=== PATIENT | female | born 1945 | race Caucasian/White ===

== ENCOUNTER → 2023-12-08 16:00 | Outpatient (REF) | payer MEDICARE, SELFPAY | LOC: HWRCS 16:00 | PROVIDERS: ATTENDING PHYSICIAN Internal Medicine; FAMILY PHYSICIAN Internal Medicine | DX: I25.118 Atherosclerotic heart disease of native coronary artery with other forms of angina pectoris (principal); I20.1 Angina pectoris with documented spasm; I48.0 Paroxysmal atrial fibrillation; R06.09 Other forms of dyspnea | CPT/HCPCS: 93306 ==

== ENCOUNTER 2024-08-05 17:54 | Emergency (ER) | payer MEDICARE, SELFPAY ==
[2024-08-05 17:54] VITALS: BMI 25.2
[2024-08-05 17:55] VITALS: BP 157/88
--- NOTE | 2024-08-05 22:41 | ED.GENMED ---
History of Present Illness
General
Chief Complaint: Musculo-Skeletal Complaint
Source: patient
Exam Limitations: none
Time Seen by Provider: 08/05/24 21:23
Nursing documentation reviewed up to this point in time: agreed with
History of Present Illness
History of Present Illness:
78-year-old female past medical history of CAD hyperlipidemia presenting to the emergency department today after she tripped landing directly on her right pinky finger she noticed a deformity he claims that she placed this back into place and came
in for further assessment. Denies any additional injuries no head trauma no loss of consciousness. No neck pain. No numbness or weakness. No breaks in the skin.
Past History
Past History
ED Past Medical History: Asthma, CAD, COPD, GERD, Hypercholesterolemia, Hypothyroidism and Other
ED Past Surgical History: Cardiac, Gynecological and Tonsilectomy
Social History
Tobacco: Former smoker
Alcohol: Occasional
Personal:
Living: with family
Employment: Retired
Family History
Family History: Unable to obtain
Review of Systems
Review of Systems
Allergies reviewed?: Yes
All Other Systems: ROS reviewed and negative except as documented in HPI and ROS
Phy Exam
Physical Exam
Physical Exam:
GENERAL: Alert , in no apparent distress
EYE: pupils equal and reactive
NECK: Supple, no significant adenopathy.
ENT: o/p clr, mmm.
CARDIAC: Regular rate and rhythm .
LUNGS: Clear breath sounds bilaterally, no acute respiratory distress, no wheezes/rales/rhonchi
ABDOMEN: Soft, without focal tenderness, no r/g, no cvat
NEUROLOGICAL: Alert and oriented, no focal neuro deficits
SKIN: Warm and dry, skin intact.
MUSCULOSKELETAL: Swelling and tenderness palpation throughout the right pinky finger no tenderness about the hand over the Manger of the fingers normal radial and ulnar pulses, well perfused.
PSYCH: Normal and appropriate interaction.
Course
Orders/Labs/Results
Orders:
Orders
08/05/24 18:00
CR Hand - Right Min 3 Views Urgent
Comment:
Reason For Exam: injury, swelling
Vital Signs
Initial and Last Documented VS:
Initial Vital Signs
Temp Pulse Resp BP Pulse Ox
97.9 F 82 16 157/88 97
08/05/24 17:55 08/05/24 17:55 08/05/24 17:55 08/05/24 17:55 08/05/24 17:55
Last Documented Vital Signs
Temp Pulse Resp BP Pulse Ox
97.9 F 82 16 157/88 97
08/05/24 17:55 08/05/24 17:55 08/05/24 17:55 08/05/24 17:55 08/05/24 17:55
Procedures
Splinting/Sling Placement
Right Fifth Finger:
Procedure completed by: myself
Pre-splint extermity exam: neurovascular intact
Type of splint: aluminium finger
Splint material: aluminum-foam
Splint checked by provider?: Yes
Normal distal neurovascular exam?: Yes
MDM/Problems Addressed
MDM/Problems Addressed:
78-year-old female presenting with concerns of injury to her right pinky finger after tripping while walking her dog. X-ray showing fracture to the proximal phalanx extra-articular. This was splinted neuro vastly intact. Otherwise will follow-up
with orthopedics for further assessment. Return precautions given.
*Critical Care Note
Total Time (30-74mins, 75-104mins- exclusive of procedures): Not Applicable
ED Attending Note
-
Portions of this chart may have been created with voice recognition software.� Occasional wrong word or��sound alike� substitutions may have occurred due to the inherent limitations of voice recognition software.
Discharge Plan
Departure
Patient Disposition: Home (Routine Discharge)
Date of Disposition: 08/05/24
Time of Disposition: 22:41
Patient with high blood pressure during this ER visit?: No
Condition: Good
Covid-19: Not Applicable
Discharge Problem:
Finger fracture
Instructions: Finger Fracture ED
Prescriptions:
No Action
multivitamin [Daily Multiple] 1 EACH tablet
1 ea PO DAILY
cetirizine 10 MG tablet
10 mg PO DAILY
isosorbide mononitrate 30 MG tablet extended release 24 hr
90 mg PO HS
nifedipine 30 MG tablet extended release
30 mg PO DAILY
aspirin 81 MG tablet,delayed release (DR/EC)
81 mg PO DAILY
levothyroxine 100 MCG tablet
100 mcg PO DAILY
isosorbide mononitrate 60 MG tablet extended release 24 hr
60 mg PO .AM
esomeprazole magnesium [Nexium] 40 MG capsule,delayed release(DR/EC)
40 mg PO DAILY
nitroglycerin 0.4 MG tablet, sublingual
0.4 mg sublingual PRN
montelukast 10 MG tablet
10 mg PO QPM
[id number] [id number] [Calcium Citrate Plus (Vit B6)] 1 EACH tablet
1 ea PO DAILY
rosuvastatin 10 MG tablet
10 mg PO QPM
levalbuterol HCl 0.63 MG/3 ML solution for nebulization
0.63 mg inhalation .Q4-6HPRN PRN (Reason: as directed)
moxifloxacin [Avelox] 400 MG tablet
400 mg PO DAILYPRN PRN (Reason: as directed)
fluticasone propion-salmeterol [Advair Diskus] 1 DISK blister with device
1 puff inhalation PRN PRN (Reason: as directed)
furosemide 20 MG tablet
20 mg PO DAILY
zolpidem 10 MG tablet
10 mg PO HSPRN PRN (Reason: as directed)
tiotropium bromide [Spiriva Respimat] 1 PUFF mist
1 puff inhalation DAILYPRN PRN (Reason: as directed)
tamsulosin 0.4 MG capsule
0.4 mg PO DAILY Qty: 5 0RF
ondansetron HCl 4 MG tablet
4 mg PO Q8HPRN PRN (Reason: Nausea/Vomiting) Qty: 10 0RF
oxycodone-acetaminophen 5 MG/325 MG tablet
1 tab PO Q4HPRN PRN (Reason: Pain) Qty: 10 0RF
tamsulosin 0.4 MG capsule
0.4 mg PO DAILY Qty: 5 0RF
hydrocodone-acetaminophen 1 TABLET tablet
1 tab PO Q4HPRN PRN (Reason: breakthrough pain) Qty: 10 0RF
diclofenac sodium 75 MG tablet,delayed release (DR/EC)
75 mg PO BID Qty: 10 0RF
Referrals:
Clovis Betancur MD [Active] - Follow up in 5-7 days
Sherrill Barnett DO [Family Provider] -
Activity Restrictions/Additional Instructions:
You came to the emergency department today with concerns of a finger fracture. This was splinted. Please leave the splint in place until orthopedic follow-up within 1 week. Return to the emergency department for any worsening, new or concerning
symptoms.
Interventions
Interventions:
*Risk Screen - Suicide Last Done: 08/05/24 17:55
*General Assessment Last Done: 08/05/24 17:55
*Neglect/Abuse Screening Last Done: 08/05/24 17:55
*ED COVID-19 Vaccine History Last Done: 08/05/24 17:55
ED-Musculoskeletal Assessment Last Done: 08/05/24 21:39
Discharge Date and Time
Print Language: UKRAINIAN
[2024-08-05 22:55] VITALS: BP 178/103
== END 2024-08-05 22:57 | disposition home or self-care (01) ==
LOC: EMR 17:54
PROVIDERS: EMERGENCY PHYSICIAN Emergency Medicine; FAMILY PHYSICIAN Internal Medicine
DX: S62.617A Displaced fracture of proximal phalanx of left little finger, initial encounter for closed fracture (principal); W01.0XXA Fall on same level from slipping, tripping and stumbling without subsequent striking against object, initial encounter; I25.10 Atherosclerotic heart disease of native coronary artery without angina pectoris; E78.00 Pure hypercholesterolemia, unspecified; J45.909 Unspecified asthma, uncomplicated; J44.9 Chronic obstructive pulmonary disease, unspecified; K21.9 Gastro-esophageal reflux disease without esophagitis; E03.9 Hypothyroidism, unspecified; Z87.891 Personal history of nicotine dependence
CPT/HCPCS: 99283; 29130; 73130

== ENCOUNTER → 2024-12-18 10:09 | Outpatient (REF) | payer MEDICARE, SELFPAY ==
[2024-12-18 12:02] LABS: % Basophils 1.1 % (0-2); % Eosinophils 10.9 % (0-6); % Immature Granulocytes 0.4 % (0-0.5); % Lymphocytes 26.9 % (20.5-51.1); % Monocytes 7.1 % (1.7-9.3); % Neutrophils 53.6 % (42.2-75.2); Absolute Basophils 0.1 10^3/uL (0-0.2); Absolute Eosinophils 0.6 10^3/uL (0-0.7); Absolute Lymphocytes 1.4 10^3/uL (1.2-3.4); Absolute Monocytes 0.4 10^3/uL (0.1-0.6); Absolute Neutrophils 2.9 10^3/uL (1.4-6.5); Hematocrit 40.3 % (37.0-47.0); Hemoglobin 13.4 g/dL (12.0-16.0); Mean Corp Hgb Conc. 33.3 g/dL (33.0-37.0); Mean Corpuscular Hgb 29.9 pg (27.0-31.0); Mean Platelet Volume 9.6 fL (7.4-10.4); Nucleated Red Blood Cells % 0 %; Platelet Count 235 10^3/uL (130-400); Red Blood Cell Count 4.48 10^6/uL (4.20-5.40); Red Cell Dist. Width 12.8 % (11.5-14.5); White Blood Cell Count 5.3 10^3/uL (4.8-10.8)
[2024-12-18 12:12] LABS: Urine Albumin Negative (Neg - Trace); Urine Bilirubin Negative (Negative); Urine Character Slightly Cloudy (Clear); Urine Color Yellow; Urine Glucose Negative (Negative); Urine Ketone Negative (Negative); Urine Leukocyte 2+ (Negative); Urine Nitrite Negative (Negative); Urine Occult Blood Negative (Negative); Urine Specific Gravity 1.015 (<1.030); Urine Urobilinogen Negative (Neg - 1+)
[2024-12-18 12:36] LABS: Urine Bacteria Many (Negative); Urine Red Blood Cell 0-2 /HPF (0-2)
[2024-12-18 12:56] LABS: Free T4 1.83 ng/dl (0.78-2.19); Vitamin D, 25-OH*** 85.3 ng/mL (30-80)
[2024-12-18 13:20] LABS: ALT (SGPT) 25 U/L (0-35); AST (SGOT) 22 U/L (14-36); Albumin 4.3 g/dl (3.5-5.0); Alkaline Phosphatase 68 U/L (38-126); Blood Urea Nitrogen 22 mg/dl (7-17); Calcium 9.5 mg/dl (8.4-10.2); Carbon Dioxide 30 mmol/L (22-30); Chloride 106 mmol/L (98-107); Glucose 104 mg/dl (70-99); HDL Cholesterol 82 mg/dl; LDL Cholesterol, Calculated 72 mg/dl; Potassium 4.2 mmol/L (3.5-5.1); Sodium 142 mmol/L (135-145); Total Bilirubin 0.6 mg/dl (0.2-1.3); Total Cholesterol 175 mg/dl (50-199); Triglyceride 107 mg/dl (10-149); Very Low Density Lipoprotein 21 mg/dl (0-30); eGFR > 60.00
[2024-12-18 19:23] LABS: Rubella Positive
== END ==
LOC: HWLAB 10:09
PROVIDERS: ATTENDING PHYSICIAN Allergy & Immunology; FAMILY PHYSICIAN Internal Medicine; REFERRING PHYSICIAN Internal Medicine
DX: I10 Essential (primary) hypertension (principal); E03.9 Hypothyroidism, unspecified; E55.9 Vitamin D deficiency, unspecified; Z23 Encounter for immunization; D84.9 Immunodeficiency, unspecified; B99.9 Unspecified infectious disease
CPT/HCPCS: 36415; 80053; 80061; 81003; 81015; 82306; 84439; 84443; 85025; 86735; 86762; 86765

== ENCOUNTER 2025-02-24 09:58 | Emergency (ER) | payer MEDICARE, SELFPAY ==
[2025-02-24 10:00] VITALS: BP 153/76
[2025-02-24 10:53] VITALS: BP 139/85
[2025-02-24 11:00] VITALS: BP 154/77
--- NOTE | 2025-02-24 11:14 | ED.GENMED ---
History of Present Illness
General
Chief Complaint: Fall
Source: patient and spouse
Time Seen by Provider: 02/24/25 11:00
History of Present Illness
History of Present Illness:
79-year-old female states that she tripped and fell in her foyer this morning approximately 8:30 AM, falling onto her left side. There was no loss of consciousness. She was able to get up with assistance. Since that time, she reports left facial
pain, left shoulder pain and less so left knee pain. She does take aspirin. She denies neck pain, chest pain, dyspnea, abdominal pain, nausea, vomiting, numbness, tingling, focal weakness, change in vision, or other complaints.
Past History
Past History
ED Past Medical History: Asthma, CAD, COPD, GERD, Hypercholesterolemia and Hypothyroidism
ED Past Surgical History: Cardiac, Gynecological and Tonsilectomy
Social History
Tobacco: Former smoker
Alcohol: Occasional
Personal:
Living: with family
Employment: Retired
Family History
Family History: Unable to obtain
Phy Exam
Physical Exam
Physical Exam:
GENERAL: Alert , in no apparent distress
EYE: pupils equal and reactive, no photophobia, EOMI, no nystagmus
NECK: Supple, no significant adenopathy, no midline tenderness.
ENT: o/p clr, mmm, no napier, no raccoon, no hemotympanum or there is bruising and tenderness to palpation noted at the lateral aspect of the left orbit without associated eye injury, etc.
CARDIAC: Regular rate and rhythm .
LUNGS: Clear breath sounds bilaterally, no acute respiratory distress, no wheezes/rales/rhonchi
ABDOMEN: Soft, without focal tenderness, no r/g, no cvat
NEUROLOGICAL: Alert and oriented, no focal neuro deficits
SKIN: Warm and dry, skin intact.
MUSCULOSKELETAL: No edema, well perfused. Tenderness to palpation noted at the left shoulder with associated decreased range of motion. No deformity or tenderness noted at clavicle, distal forearm elbow etc. Mild tenderness to palpation noted at
the left knee at the suprapatellar area without associated deformity, range of motion preserved, neurovascularly intact
PSYCH: Normal and appropriate interaction.
Course
Orders/Labs/Results
Orders:
Orders
02/24/25 11:13
CT Head W/o Iv Contrast Urgent
Comment:
Reason For Exam: fall. on asa
Facial Bones wo Contrast CT [CT Facial Bones W/o Iv Contras] Urgent
Comment:
Reason For Exam: fall
Oxycodone/Acetaminophen [Percocet 5/325] 1 tablet PO NOW STA
Knee, Left 4 or More Views [CR Knee - Left 4 Or More View*] Urgent
Comment:
Reason For Exam: fall
Shoulder, Left 2 View CR [CR Shoulder - Left Min 2 View*] Urgent
Comment:
Reason For Exam: fall
Vital Signs
Initial and Last Documented VS:
Initial Vital Signs
Temp Pulse Resp BP Pulse Ox
97.6 F 55 16 153/76 97
02/24/25 10:00 02/24/25 10:00 02/24/25 10:00 02/24/25 10:00 02/24/25 10:00
Last Documented Vital Signs
Temp Pulse Resp BP Pulse Ox
97.6 F 55 16 139/85 99
02/24/25 10:00 02/24/25 10:00 02/24/25 10:00 02/24/25 10:53 02/24/25 11:16
*Pulse Oximetry
SaO2: 99
Oxygen Mode of Delivery: Room air
Update Note
Update Note:
Patient presents to the Emergency Department with ____fall
Number and Complexity of Problems Addressed at the Encounter
� Chronic conditions affecting care:
� Acute Exacerbation and/or Progression of Chronic Illness:
� Differential Diagnosis includes: But not limited to intracranial bleed, orbital fracture, shoulder fracture, etc. etc.
Amount and/or Complexity of Data to be Reviewed and Analyzed
� I performed an independent evaluation of and my interpretation is:
EKG:
CT:Unenhanced CT of the facial bones.
There is crescentic soft tissue density in the left periorbital region, greatest laterally, compatible with contusion/periorbital hematoma. There is no evidence for injury to the globes or orbits. Evidence of previous bilateral cataract surgery.
There is no evidence for fracture of the nasal bones. There is no evidence for orbital fracture with particular attention to the left orbit. The zygomatic arches appear intact.
There is no evidence for fracture involving the mandible. The anterior maxillary spine appears intact.
No evidence for fracture involving the visualized portion of the cervical spine. The predental space appears normal.
Mild to moderate patchy mucosal thickening of the ethmoid sinuses. Small amount of mixed air and soft tissue density involving the posterior left sphenoid sinus, which could represent mucosal thickening or small amount of blood products. 2 cm ovoid
polyp or mucous retention cyst involving the posterior and inferior right maxillary sinus. Mild to moderate lobulated mucosal thickening involving the posterior and inferior left maxillary sinus.
Mild to moderate deviation of the bony nasal septum toward the right.
Small 4 mm osteoma arising from the inferior aspect of the right frontal sinus.
IMPRESSION: No evidence for facial bone fracture.
Read by radiology. Head CT NAD. Left knee x-ray read by me NAD. Left shoulder x-ray read by me, no dislocation, proximal humerus fracture noted without significant deformity
Xrays:
Laboratory Studies:
Other:
� Review of other/old records reveals:
� Clinical information was obtained by an independent historian: who is bedside
� Prescriptions/Medications Considered but not given:
� Further testing considered but not performed:
Risk of Complications and/or Morbidity or Mortality of Patient Management
� Social determinants of health affecting care:
� Discussion with other providers (PCP, Hospitalists, Consultants, etc):
� Escalation of care including admission/observation vs risk of discharge considered: Nonspecific CT findings of facial bones noted, not requiring urgent intervention but does require close follow-up. No fracture noted. Patient
will be given copy of report with instructions to follow-up closely with her doctor. She will also be provided a sling and orthopedic follow-up regarding her proximal shoulder fracture. Discussed with her importance of follow-up and reasons return
to the ER.
ED Attending Note
-
Portions of this chart may have been created with voice recognition software.� Occasional wrong word or��sound alike� substitutions may have occurred due to the inherent limitations of voice recognition software.
Discharge Plan
Departure
Patient Disposition: Home (Routine Discharge)
Date of Disposition: 02/24/25
Time of Disposition: 12:18
Patient with high blood pressure during this ER visit?: Yes
Condition: Good
Discharge Problem:
Fracture of shoulder
Instructions: Head Injury in Adults (DC), Contusion (DC), Shoulder or upper arm fracture, BLOOD PRESSURE
Prescriptions:
No Action
multivitamin [Daily Multiple] 1 EACH tablet
1 ea PO DAILY
cetirizine 10 MG tablet
10 mg PO DAILY
isosorbide mononitrate 30 MG tablet extended release 24 hr
90 mg PO HS
nifedipine 30 MG tablet extended release
30 mg PO DAILY
aspirin 81 MG tablet,delayed release (DR/EC)
81 mg PO DAILY
levothyroxine 100 MCG tablet
100 mcg PO DAILY
isosorbide mononitrate 60 MG tablet extended release 24 hr
60 mg PO .AM
esomeprazole magnesium [Nexium] 40 MG capsule,delayed release(DR/EC)
40 mg PO DAILY
nitroglycerin 0.4 MG tablet, sublingual
0.4 mg sublingual PRN
montelukast 10 MG tablet
10 mg PO QPM
[id number] [Calcium Citrate Plus (Vit B6)] 1 EACH tablet
1 ea PO DAILY
rosuvastatin 10 MG tablet
10 mg PO QPM
levalbuterol HCl 0.63 MG/3 ML solution for nebulization
0.63 mg inhalation .Q4-6HPRN PRN (Reason: as directed)
moxifloxacin [Avelox] 400 MG tablet
400 mg PO DAILYPRN PRN (Reason: as directed)
fluticasone propion-salmeterol [Advair Diskus] 1 DISK blister with device
1 puff inhalation PRN PRN (Reason: as directed)
furosemide 20 MG tablet
20 mg PO DAILY
zolpidem 10 MG tablet
10 mg PO HSPRN PRN (Reason: as directed)
tiotropium bromide [Spiriva Respimat] 1 PUFF mist
1 puff inhalation DAILYPRN PRN (Reason: as directed)
tamsulosin 0.4 MG capsule
0.4 mg PO DAILY Qty: 5 0RF
ondansetron HCl 4 MG tablet
4 mg PO Q8HPRN PRN (Reason: Nausea/Vomiting) Qty: 10 0RF
oxycodone-acetaminophen 5 MG/325 MG tablet
1 tab PO Q4HPRN PRN (Reason: Pain) Qty: 10 0RF
tamsulosin 0.4 MG capsule
0.4 mg PO DAILY Qty: 5 0RF
hydrocodone-acetaminophen 1 TABLET tablet
1 tab PO Q4HPRN PRN (Reason: breakthrough pain) Qty: 10 0RF
diclofenac sodium 75 MG tablet,delayed release (DR/EC)
75 mg PO BID Qty: 10 0RF
Referrals:
Enrrique Miguel MD [Active, Orthopedics] - Next open appointment
Sherrill Barnett DO [Family Provider, Internal Medicine]
Bk Alexandre MD [Active, Otology] - Next open appointment
Activity Restrictions/Additional Instructions:
YOU HAVE SOME ABNORMALITIES NOTED ON YOUR CAT SCAN THAT REQUIRE FOLLOW-UP, PLEASE CONTACT YOUR DOCTOR FOR THIS AND BRING THE ASSOCIATED CAT SCAN REPORT. IF YOU DEVELOP INCREASING OR NEW PAIN, SWELLING, CHANGE IN VISION, NUMBNESS, GET WORSE, DO NOT
GET BETTER, OR OTHER WORRISOME SIGNS, PLEASE RETURN TO THE ER IMMEDIATELY!
Interventions
Interventions:
*Risk Screen - Suicide Last Done: 02/24/25 10:01
*General Assessment Last Done: 02/24/25 10:57
*Neglect/Abuse Screening Last Done: 02/24/25 10:01
*ED- Fall Risk Assessment Last Done: 02/24/25 10:57
*ED COVID-19 Vaccine History Last Done: 02/24/25 10:57
ED-Musculoskeletal Assessment Last Done: 02/24/25 10:57
ED- Neurological Assessment Last Done: 02/24/25 10:57
ED-Skin Assessment Last Done: 02/24/25 10:57
Discharge Date and Time
Print Language: IVORIAN
[2025-02-24] MEDS: PERCOCET 5/325 1 TABLET PO (11:30)
== END 2025-02-24 12:36 | disposition home or self-care (01) ==
LOC: EMR 09:58
PROVIDERS: EMERGENCY PHYSICIAN Emergency Medicine; FAMILY PHYSICIAN Internal Medicine
DX: S42.292A Other displaced fracture of upper end of left humerus, initial encounter for closed fracture (principal); S05.12XA Contusion of eyeball and orbital tissues, left eye, initial encounter; W01.0XXA Fall on same level from slipping, tripping and stumbling without subsequent striking against object, initial encounter; E03.9 Hypothyroidism, unspecified; E78.00 Pure hypercholesterolemia, unspecified; I25.10 Atherosclerotic heart disease of native coronary artery without angina pectoris; Z87.891 Personal history of nicotine dependence
CPT/HCPCS: 99284; 70450; 70486; 73030; 73564